=== PATIENT | female | born 1980 | race African-American/Black ===

== ENCOUNTER 2019-03-07 18:16 | Emergency (ER) | payer BC, OTHER ==
--- NOTE | 2019-03-07 18:43 | ER Document Report ---
ED General - General TRAVEL OUTSIDE OF THE [place] IN LAST 30 DAYS: No <ULISES IBRAHIM - Last Filed: 03/07/19 20:08> <KLEBER YANG CLARENCE - Last Filed: 03/07/19 21:44> - General Chief Complaint: Ankle Injury Stated Complaint: ANKLE INJURY Time Seen by Provider: 03/07/19 18:39 Primary Care Provider: [facility] [Provider Group] - Follow up as needed FELIPE MCCARTHY JR, DO [ACTIVE PROVISIONAL STAFF] - 03/11/19 - [facility] Notes: Patient is a 38-year-old female with no significant past medical history who presents complaining of left ankle pain status post injury while playing volleyball prior to arrival. Patient states that someone landed on her ankle and her body went one way of the ankle and the other. She has noted some significant swelling and cannot weight-bear on the ankle/foot. Patient states that she has an allergy to Biaxin. No other concerns or complaints at this time. She did not injure any other part of her body. She is not on any blood thinning medications. Denies any headache, fever, head injury, neck pain, URI, sore throat, chest pain, palpitations, syncope, cough, shortness of breath, wheeze, dyspnea, abdominal pain, nausea/vomiting/diarrhea, urinary retention, dysuria, hematuria, loss of control of bowel or bladder, numbness/tingling, saddle anesthesia, muscle paralysis, or rash. (ULISES IBRAHIM) - Related Data Allergies/Adverse Reactions: clarithromycin [From Biaxin] Allergy (Verified 03/07/19 18:48) coconut Allergy (Verified 03/07/19 18:48) egg Allergy (Verified 03/07/19 18:49) Past Medical History - Social History Smoking Status: Never Smoker Family History: Reviewed & Not Pertinent Patient has suicidal ideation: No Patient has homicidal ideation: No <ULISES IBRAHIM - Last Filed: 03/07/19 20:08> Review of Systems - Review of Systems -: Yes All other systems reviewed and negative <ULISES IBRAHIM - Last Filed: 03/07/19 20:08> Physical Exam <ULISES IBRAHIM - Last Filed: 03/07/19 20:08> - Vital signs Vitals: Temp Pulse Resp BP Pulse Ox 98.7 F 70 16 120/78 99 03/07/19 18:36 03/07/19 18:36 03/07/19 18:36 03/07/19 18:36 03/07/19 18:36 - Notes Notes: PHYSICAL EXAMINATION: GENERAL: Well-appearing, well-nourished and in no acute distress. LUNGS: Breath sounds clear to auscultation bilaterally and equal. No wheezes rales or rhonchi. HEART: Regular rate and rhythm without murmurs, rubs, gallops. Musculoskeletal: Lt foot/ankle: + deformity with swelling noted to the left ankle. LROM to passive/active dorsiflexion. Strength 4+/5 due to pain. N/V intact distal. + tenderness to the b/l ankle to palp. No bony tenderness of the foot. Achilles intact. No tenderness at the fibular head. Extremities: No cyanosis, clubbing, or edema b/l. Peripheral pulses 2+. Capillary refill less than 3 seconds. NEUROLOGICAL: Normal speech. Normal sensory, motor exams otherwise PSYCH: Normal mood, normal affect. SKIN: Warm, Dry, normal turgor, no rashes or lesions noted. (ULISES IBRAHIM) Course <ULISES IBRAHIM - Last Filed: 03/07/19 20:08> - Re-evaluation Re-evalutation: 03/07/19 Patient is an afebrile, well-hydrated, 38-year-old female who presents to the ED with a fracture to the left distal tibia/fibula with anterior subluxation noted. Vitals are acceptable without any significant tachycardia, tachypnea, or hypoxia. PE is otherwise unremarkable for any neurovascular compromise, open fracture, septic joint. See XR result. Conscious sedation performed with Dr. Yang and dislocation reduced successfully w/o complication. Post leg/stirrup splint applied today and sling provided. Patient is nontoxic-appearing. No other labs or imaging warranted at this time based on H&P. Conservative measures otherwise for symptoms. Recheck with your PCM in 3-5 days. Call orthopedics tomorrow to schedule an appointment for further evaluation and management. Return to the ED with any worsening/concerning symptoms otherwise as reviewed in discharge. Pt does not want us to contact an ortho here as she is leaving to go back to [place] tomorrow and will call an ortho provider in her area tomorrow. Patient is in agreement. (ULISES IBRAHIM) - Vital Signs Vital signs: Temp Pulse Resp BP Pulse Ox 98.7 F 67 14 111/88 H 100 03/07/19 18:36 03/07/19 20:00 03/07/19 21:01 03/07/19 21:01 03/07/19 21:01 Procedures - Conscious Sedation Conscious sedation Consent obtained: Yes Prior complications: Procedural sedation Normal healthy pt.: P1. - ASA Classification Airway Evaluation: Normal anatomy Mallampati Classification: Class 1 Used during procedure: Suction available, IV access obtained, Pulse ox on pt., hall monitor on pt. Medications administered: Fentanyl, Etomidate Reversal agents: None I personally performed/intraservice time: Sedation - Dr. Yang, Procedure - Dr. Yang and myself Complications: No - Immobilization Left Ankle Pre-Proc Neuro Vasc Exam: Normal Immobilizer type: Short Leg Posterior Performed by: PCT Post-Proc Neuro Vasc Exam: Unchanged from pre-exam <ULISES IBRAHIM - Last Filed: 03/07/19 20:08> - Conscious Sedation Conscious sedation Time started: 19:45 Time completed: 20:18 Consent obtained: Yes Indication: left ankle fracture/dislocation Last meal: 1500 Prior complications: Procedural sedation, Other - no h/o complications Normal healthy pt.: P1. - ASA Classification Airway Evaluation: Normal anatomy Mallampati Classification: Class 1 Used during procedure: Suction available, IV access obtained, Pulse ox on pt., hall monitor on pt. Medications administered: Fentanyl, Etomidate Reversal agents: None I personally performed/intraservice time: Sedation, Procedure, 30 min or less Complications: Yes - transient drop in O2 saturations that resolved with supplemental O2 - Immobilization Left Ankle Time completed: 20:18 Pre-Proc Neuro Vasc Exam: Normal - 2+ dorsalis pedis pulse, cap refill less than 2 seconds in all 5 digits, sensation intact when this md asked if pt could feel me touching her toes Immobilizer type: Short Leg Posterior, Other - stirrup splint Post-Proc Neuro Vasc Exam: Normal, Unchanged from pre-exam Alignment checked and good: Yes - Post reduction films read by radiologist, reduction noted on read - Joint Reduction/Fracture Care Left Ankle Time completed: 20:18 Consent obtained: Yes Conscious sedation: Yes Pre-procedure NV exam: Yes - 2+ dorsalis pedis pulse, sensation intact, cap refill less than 2 seconds Fracture: Closed Manipulation comment: pt tolerated procedure well Post-procedure NV exam: Yes - Dorsalis pedis 2+, cap refill > 2 seconds in all 5 digits, sesation intact Post-reduction x-ray: Joint reduced Reduction attempts: 1 Complications: Yes - Transient drop in O2 sats; see conscious sedation note <KLEBER YANG IV - Last Filed: 03/07/19 21:44> Discharge <ULISES IBRAHIM - Last Filed: 03/07/19 20:08> <KLEBER YANG IV - Last Filed: 03/07/19 21:44> - Discharge Clinical Impression: Closed left ankle fracture Qualifiers: Encounter type: initial encounter Qualified Code(s): S82.892A - Other fracture of left lower leg, initial encounter for closed fracture Condition: Stable Disposition: HOME, SELF-CARE Instructions: Oral Narcotic Medication ([facility]), Use of Crutches ([facility]), Fractured Ankle (Bimalleolar) ([facility]) Additional Instructions: Rest, Ice, Compression, Elevation Use crutches/splint as directed Tylenol/ibuprofen as needed F/u with your PCP in 3-5 days for a recheck Call orthopedics tomorrow to schedule an appointment for further evaluation and management Return to the ED with any worsening symptoms and/or development of fever, headache, chest pain, palpitations, syncope, shortness of breath, trouble breathing, abdominal pain, n/v/d, muscle weakness/paralysis, numbness/tingling, swelling, redness, or other worsening symptoms that are concerning to you. Be certain to follow-up with your orthopedist in [place], [place] on 03/11/2019. Be sure to stop hourly upon your return home to [place]. Do not bear weight on your injured leg. Prescriptions: Morphine Sulfate [Morphine Ir 15 Mg Tablet] 15 mg PO TID #12 tablet Referrals: [facility] ([facility] [Provider Group] - Follow up as needed FELIPE MCCARTHY JR, DO [ACTIVE PROVISIONAL STAFF] - 03/11/19
[2019-03-07] MEDS ORDERED: ETOMIDATE INJ/PF 20 MG/10 ML SDV IV ONE (19:10)
[2019-03-07] MEDS ORDERED: FENTANYL CITRATE INJ/PF 100 MCG/2 ML AMPUL IV ONE (19:12)
[2019-03-07] MEDS ORDERED: NORMAL SALINE 1000 ML 1,000 ML IV ONE (19:12)
--- NOTE | 2019-03-07 19:12 | RADIOLOGY REPORT (SQ) ---
EXAM DESCRIPTION: ANKLE LEFT COMPLETE COMPLETED DATE/TIME: 03/07/2019 7:02 pm REASON FOR STUDY: bed 20 left ankle +deformity COMPARISON: None. NUMBER OF VIEWS: Three views. TECHNIQUE: AP, lateral, and oblique radiographic images acquired of the left ankle. LIMITATIONS: None. FINDINGS: MINERALIZATION: Normal. BONES: Posterior malleolar fracture of the tibia. Anterolateral subluxation of the tibia in relation to the talus. Possible oblique fracture of the fibula. JOINTS: There is widening of the interosseous space between the tibia and fibula, suggesting disrupti on of the interosseous ligament. There is widening of the medial joint space suggesting ligament inj ury. SOFT TISSUES: No soft tissue swelling. No foreign body. OTHER: No other significant finding. IMPRESSION: Fractures and ligament injuries as described. TECHNICAL DOCUMENTATION: JOB ID: [id number] [employer]- All Rights Reserved Reading location - IP/workstation name: [email or web address]
[2019-03-07] MEDS ORDERED: HYDROCODONE/ACETAMINOPHEN 5-325 MG (6 TAB/ER DISP) PO PRN (19:27)
[2019-03-07 21:07] VITALS: BP 111/88
--- NOTE | 2019-03-07 21:13 | RADIOLOGY REPORT (SQ) ---
2 VIEWS OF LEFT ANKLE EXAM DATE: 03/07/2019 8:16 PM [employer] HISTORY: Post reduction. COMPARISON: Radiographs from earlier the same day. FINDINGS: There has been interval reduction of the tibiotalar dislocation. Again seen fractures of the posterior malleolus and distal fibula. The surrounding soft tissues are swollen. The overlying cast obscures fine osseous detail. IMPRESSION: 1. Interval casting and reduction of tibiotalar dislocation. 2. Mildly displaced fractures of the posterior malleolus and distal fibula.
== END 2019-03-07 21:56 | disposition home or self-care (01) ==
LOC: ER 18:16
PROC: 0QSHXZZ Reposition Left Tibia, External Approach (ICD-10-PCS; principal; 2019-03-07)
DX: S82.892A Other fracture of left lower leg, initial encounter for closed fracture (principal); M25.572 Pain in left ankle and joints of left foot; M79.89 Other specified soft tissue disorders; W51.XXXA Accidental striking against or bumped into by another person, initial encounter; Y93.68 Activity, volleyball (beach) (court)
CPT/HCPCS: 99283; 99152; 73600; 73610; 27768; J3010; J7030; J3490